=== PATIENT | male | born 1975 | race African-American/Black ===

== ENCOUNTER 2017-03-05 20:16 | Emergency (ER) | payer BC ==
[~2017-03-05] VITALS: Ht 182.9 cm; Wt 90.7 kg
[2017-03-05] MEDS ORDERED: Metoclopramide 10mg/10ml Liq ORAL ONE (20:45)
[2017-03-05 21:30] VITALS: BP 97/68
[2017-03-05] MEDS ORDERED: Ketorolac 30mg Inj IV ONE (21:30)
[2017-03-05 21:38] LABS: BASOPHILS % (AUTO) 1.5 % (0.0-2.0); EOSINOPHILS % (AUTO) 1.9 % (0.0-3.0); LYMPHOCYTES % (AUTO) 43.7 % (20.0-45.0); MEAN CORPUSCULAR HEMOGLOBIN 28.5 PG (27.0-31.0); MEAN CORPUSCULAR HGB CONC 32.8 G/DL (32.0-36.0); MEAN CORPUSCULAR VOLUME 87 FL (80-99); MONOCYTES % (AUTO) 6.7 % (1.0-10.0); NEUTROPHILS % (AUTO) 46.3 % (45.0-75.0); PLATELET COUNT 163 K/UL (150-450); RED BLOOD COUNT 4.48 M/UL (4.70-6.10); RED CELL DISTRIBUTION WIDTH 12.1 % (11.6-14.8); WHITE BLOOD COUNT 6.2 K/UL (4.8-10.8)
--- NOTE | 2017-03-05 21:38 | Emergency Room Report ---
History of Present Illness General Chief Complaint: Headache Source: Patient, Family Member Present Illness HPI 41 -year-old male walks in with 2 days of right-sided headache Feels like "something pop behind my eyes". They described as constant pressure. Associated with "eye running water" earlier. Also associated with some throbbing on right buddhist Denies contacts, change in vision, vomiting No history of elevated BP, previous SAH or aneyrsm No neck pain/stiffness, fever/chills Took motrin early Allergies: Coded Allergies: ACETAMINOPHEN (Verified Allergy, Unknown, 03/05/17) HYDROCODONE (Verified Allergy, Unknown, 03/05/17) Patient History Past Medical History: none Past Surgical History: none Pertinent Family History: none Social History: Denies: smoking, alcohol use, drug use Immunizations: UTD Reviewed Nursing Documentation: PMH: Agreed, PSxH: Agreed Nursing Documentation-PMH Past Medical History: No Stated History Review of Systems All Other Systems: negative except mentioned in HPI Physical Exam Vital Signs Date Time Temp Pulse Resp B/P (MAP) Pulse Ox O2 Delivery O2 Flow Rate FiO2 03/05/17 20:19 97.9 60 18 116/83 98 03/05/17 21:30 Nasal Cannula 2.0 Sp02 EP Interpretation: reviewed, normal General Appearance: normal inspection, well appearing, alert, GCS 15, non-toxic , mild distress, other - lying still in dark on stretcher Head: normocephalic, atraumatic Eyes: bilateral eye PERRL, bilateral eye EOMI ENT: normal ENT inspection, hearing grossly normal, normal pharynx, no angioedema, normal voice, TMs + canals normal, uvula midline, moist mucus membranes Neck: normal inspection, full range of motion, supple, thyroid normal, no meningismus, no bony tend Respiratory: normal inspection, lungs clear, normal breath sounds, no rhonchi, no respiratory distress, no retraction, no accessory muscle use, no wheezing, speaking full sentences Cardiovascular #1: regular rate, rhythm, no edema, no JVD, normal capillary refill Gastrointestinal: normal inspection, normal bowel sounds, non tender, soft, no mass, no peritonitis, non-distended, no guarding, no hernia, no pulsatile mass Genitourinary: no CVA tenderness Musculoskeletal: normal inspection, back normal, normal range of motion, no calf tenderness, pelvis stable, Deja's Sign negative Neurologic: normal inspection, alert, oriented x3, responsive, scientist propagator III-XII nml as tested, motor strength/tone normal, cerebellar normal, normal gait, speech normal Psychiatric: normal inspection, judgement/insight normal, mood/affect normal, no suicidal/homicidal ideation, no delusions Skin: normal inspection, normal color, no rash Lymphatic: normal inspection, no adenopathy Medical Decision Making Diagnostic Impression: Primary Impression: Headache Qualified Codes: R51 - Headache ER Course Differential includes tension headache, migraine headache, cluster headache, temporal arteritis CT head negative for SAH Unlikely SAH given 2 days of symptoms, normal BP, and no focal neurological deficits Unlikely to be temporal arteritis given young age, no palpable temporal artery CHIEF OF SERVICE ERP WNL Symptoms improved with supplemental oxygen, Reglan, Toradol Rhythm Strip Diag. Results EP Interpretation: yes Rate: 60 Rhythm: NSR, no PVC's, no ectopy Last Vital Signs Date Time Temp Pulse Resp B/P (MAP) Pulse Ox O2 Delivery O2 Flow Rate FiO2 03/05/17 21:30 59 15 97/68 100 Nasal Cannula 2.0 03/05/17 20:19 97.9 Status: improved Disposition: HOME, SELF-CARE VANI MAI M.D. Mar 05, 2017 21:38
[2017-03-05 22:02] LABS: ANION GAP 5 mmol/L (5-15); CALCIUM 8.9 MG/DL (8.5-10.1); CARBON DIOXIDE 29 MMOL/L (21-32); CHLORIDE 105 MMOL/L (98-107); CREATININE 1.2 MG/DL (0.55-1.30); GLOMERULAR FILTRATION RATE > 60 mL/min (>60); SODIUM 139 MMOL/L (136-145)
[2017-03-05] MEDS ORDERED: REGLAN10 M1 ORAL (22:05)
[2017-03-05 22:13] LABS: ALANINE AMINOTRANSFERASE 27 U/L (12-78); ALBUMIN/GLOBULIN RATIO 1.2 (1.0-2.7); ASPARTATE AMINO TRANSFERASE 18 U/L (15-37); TOTAL PROTEIN 7.4 G/DL (6.4-8.2)
[2017-03-05 22:14] LABS: BILIRUBIN,DIRECT 0.2 MG/DL (0.0-0.3); CRP QUANT < 0.4 mg/dL (0.00-0.90)
[2017-03-05 22:23] VITALS: BP 102/74
--- NOTE | 2017-03-06 14:14 | Diagnostic Imaging Report ---
Indication: Head pain Technique: Continuous helical CT scanning of the head was performed without intravenous contrast material. Axial and coronal 5 mm sections were generated. Radiation dose was minimized using automated exposure control Dose: Total Dose Length Product - DLP [address] Dose Index - CTDIvol(s) 70.38 mGy. Comparison: none Findings: The ventricular system is normal in size and configuration. There is no shift of midline structures. No abnormal extra-axial fluid collections are noted. There is no evidence of intracerebral bleeding. No other abnormal high or low density areas are noted within the brain. Intact calvarium. Visualized orbits and sinuses are unremarkable. Normal arthur-white differentiation. Impression: Normal CT scan of the head without contrast material. This agrees with the preliminary interpretation provided overnight by [facility]. The CT scanner at [facility] is accredited by the [employer] and the scans are performed using protocols designed to limit radiation exposure to as low as reasonably achievable to attain images of sufficient resolution adequate for diagnostic evaluation.
== END 2017-03-05 22:23 | disposition home or self-care (01) ==
LOC: EMR 20:46
DX: R51 Headache (principal); Z88.6 Allergy status to analgesic agent
CPT/HCPCS: 36415; 70450; 80053; 82248; 85025; 85651; 86140; 96374; 99284; J1885